=== PATIENT | male | born 1980 | race American Indian/Alaskan Native ===

== ENCOUNTER 2020-05-12 11:06 | Emergency (ER) | payer SELFPAY ==
[2020-05-12] MEDS ORDERED: KETOROLAC 30 MG/1 ML INJ IV ONE (11:56)
[2020-05-12] MEDS ORDERED: KETOROLAC 60 MG/2 ML INJ ONE (12:59)
--- NOTE | 2020-05-12 14:55 | Emergency Department Report ---
ED Chest Pain HPI - General Stated Complaint: CHEST PAIN Time Seen by Provider: 05/12/20 14:08 Source: EMS Mode of arrival: Ambulatory Limitations: No Limitations - History of Present Illness Initial Comments: 40-year-old male with no significant past medical history presents the hospital complaining of waking up with a right-sided sharp chest pain 3 to 4 hours ago. Pain is moderate in intensity but improved since arrival. Pain was worse with movement of the right arm and deep inspiration. Patient complained of shortness of breath earlier but none at this time. He denies associated symptoms of nausea, vomiting, diaphoresis, cough, or fever. He also denies calf tenderness, leg edema, previous history of PE/DVT, or recent travel. Patient denies smoking cigarettes. His mom of heart problems by the age of 56. Patient presented via EMS and received nitroglycerin and aspirin prior to arrival. Patient is right-hand dominant This chart was created during downtime procedures when [facility] was not available and previous medical record was not available for review. Chart was then created in [employer] after patient discharge - Related Data Allergies Allergy/AdvReac Type Severity Reaction Status Date / Time No Known Allergies Allergy Unverified 05/12/20 14:56 Heart Score - HEART Score History: Slightly suspicious EKG: Normal Age: < 45 Risk factors: 1-2 risk factors Troponin: < normal limit HEART Score: 1 ED Review of Systems ROS: Stated complaint: CHEST PAIN Other details as noted in HPI Comment: All other systems reviewed and negative ED Past Medical Hx - Past Medical History Previous Medical History?: No - Family History Family history: asthma - Social History Smoking Status: Never Smoker ED Physical Exam - Other Other exam information: General: No acute distress Head: Atraumatic Eyes: normal appearance ENT: Moist mucous membranes Neck: Normal appearance, no midline tenderness Chest: Clear to auscultation bilaterally, reproducible right-sided chest wall tenderness to palpation and movement of abduction of right shoulder CV: Regular rate and rhythm Abdomen: Soft, normal bowel sounds, nontender, nondistended, no rebound or guarding Back: Normal inspection Extremity: Normal inspection, full range of motion, no calf tenderness or leg edema Neuro: Alert O x 3, no facial asymmetry, speech clear, no gross motor sensory deficit Psych: Appropriate behavior Skin: No rash NARGIS score - Nargis Score Age > 65: (0) No Aspirin use within the Past 7 Days: (0) No 3 or more CAD Risk Factors: (0) No 2 or more Angina events in past 24 hrs: (0) No Known CAD with more than 50% Stenosis: (0) No Elevated Cardiac Markers: (0) No ST Deviation Greater than 0.5mm: (0) No NARGIS Score: 0 ED Medical Decision Making - EKG Data -: EKG Interpreted by Me EKG shows normal: sinus rhythm, intervals (QTc 424), ST-T waves (no stemi) Rate: normal - EKG Data When compared to previous EKG there are: previous EKG unavailable - Medical Decision Making EKG normal sinus rhythm rate 69. Early repol without ST elevation GA. QTc 424 Patient presents to the hospital with symptoms of right sided muscle skeletal chest pain. Pain reproducible with palpation and movement. Toradol provided. Heart score 1 risk factor of family hx of bmi). Perc Pe score 0. Patient will be discharged home with Nsaids and PMD follow up Diagnosis musculokeletal right-sided chest pain Follow up [facility] 3-5 days Motrin 800 mg TID (provided with handwritten script) Critical Care Time: No Critical care attestation.: If time is entered above; I have spent that time in minutes in the direct care of this critically ill patient, excluding procedure time. ED Disposition Clinical Impression: Musculoskeletal chest pain Disposition: TO HOME OR SELFCARE Is pt being admited?: No Condition: Stable Instructions: Chest Pain (ED) Referrals: LUIS JHAVERI MD [Staff Physician] - 3-5 Days
[2020-05-13 01:11] VITALS: BP 118/59
== END 2020-05-12 15:05 | disposition home or self-care (01) ==
LOC: ED 11:06
DX: R07.89 Other chest pain (principal); M79.10 Myalgia, unspecified site
CPT/HCPCS: 93005; 96374; 99283; J1885